=== PATIENT | female | born 2000 | race Caucasian/White ===

== ENCOUNTER 2023-06-10 10:06 | Outpatient (AMB) | payer BC, SELFPAY ==
[2023-06-10 10:08] VITALS: BP 118/66; PULSE 101; O2SAT 99; BMI 24.7
--- NOTE | 2023-06-10 10:08 | MHC.OFFVIS ---
Intake Vital Signs 06/10/23 10:08 Height 5 ft Weight 126 lb 4 oz BMI 24.7 BP 118/66 Blood Pressure Location Lt brachial Position Sitting Pulse 101 H Pulse Source Pulse Oximeter Pulse Oximetry (%) 99 Oxygen Delivery Method Room Air Intake Visit Reasons: ENP-Chronic dizziness and FH of Ms - Confirmed Intake Note: Pt presents to the office today for a new patient visit for chronin dizziness and hand and feet numbness/tingling. Pt states she started with the diziness 2 years ago as well as the numbness and tingling in her hands and feet. Pt states it happens at random times. Pt states it is usually everyday that this happens. Allergies No Known Allergies Allergy (Verified 06/10/23 10:10) Medication List - Last Reconciled 06/10/23 by MILA Gonzalez calcium carb-D3-mag ox-zinc ox 333 mg-133 unit -133 mg-5 mg (Trent Mag Zinc Plus D3) 1 tab PO DAILY HPI HPI Comments History of Present Illness Details Right-handed 23-yr-old female presents for new pt evaluation of dizziness and paresthesias. Pt reports she started having dizziness 2-3 yrs. Pt deneis any preceding infection, travel, injury. She states she had been a passenger in a car for about 10 minutes, and when she got out of the car she just felt not right. She describes the dizziness as room spinning, not right in space sensation, or when more severe and prolonged will have balance difficulties (not a pulling sensation just unsteady and feeling ehr feet are heavy). Feels like she has to open her eyes wider- and this helps the dizziness subside some. Closing her eyes makes the dizziness worse and triggers nausea. The dizziness is worse if she is looking down a lot or making a lot of turns- such as looking down on at a computer screen. 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 Other triggers include shaking her head no. Dizziness is not triggered by rolling over in bed. The dizziness lasts 30 min to 4 hrs, sometimes she goes to bed dizzy but wakes up even more dizzy in the am. Initially the dizziness was very sporadic, every few months, then every month, and in the last 1.5 yrs- daily. Dizziness a/w- paresthesias- her hands, BLE (legs to toes) tingling, and feet numbness. Speech difficulties- word swapping (but word will start w/ same letter), mispeakin She has tried dramamine- ineffective. She has not tried vestibular tx. She reports a h/o motion sickness since age 18 when she got her [place] driver's license. She may have some diplopia a/w her migraine. She has had migraine and headcahe since childhood- prior to menarche. Denies h/o colic, cyclical vomiting. Headache questionnaire: Preceding causes? None Previous work-up? Brain MRI w/o, November 2022, [place]: IMPRESSION: Normal MRI of the brain. Minimal amount of fluid in the dependent left mastoid air cells. Typical headache characteristics: Prodrome symptoms? Unsure Aura? Pt is not sure Location, quality, characteristics? Starts as a pressure in midfrontal pressure, f/b mild overlapping diplopia, and then a blast of external pressure and bilateral (can be more one side than the other), f/b blurry vision- which will last through the end of the day. Pain is usually ajmie supratrochlear region or bitemporal, rarely top of head. Left eye usually throbbing. Pain intensity? 9/10 Associated symptoms? Photophobia, some phonophobia, nausea, vomiting just once, usually dizziness comes w/ headache, brain fog, fatigue, activity intolerance. States she has always been tender headed. Focal weakness, Parethesias, Autonomic s/s? eyes watering, Postdrome? Lingers. Triggers? If has SOB, sometimes light. Any positional, valsalva, exertional, sexual activity triggers? None Menstrual triggers? None Time of day? No specific time of day Duration? Usually all day- may last into the next day Frequency? Was sporadic, but also now daily for past 1.5 yrs. How does headache impact your life? Has had to leave work d/t migraine nad dizziness. Current acute medication use/interventions: Ibuprofen or Tylenol- does not help. Previous acute medication use: None Current preventative medication use: None Previous preventative medication use: None Non-pharmacological interventions: Rest. Ice and Heat- makes her headaches worse. History of musculoskeletal disorders or injury? Chronic back pain since age 14. History of concussion/head injury? None History of mood disorder? Some anxiety. History of sleep disorder? May wake up from snoring. Endorses gasping arousals, excessive daytime sleepiness (even when sitting using her phone), fatigue. Her father has sleep apnea. Occasional restless legs feeling. History of respiratory disease? Exercise induced asthma. History of CV disease? No HTN/HLD. Reports childhood murmur. Prone to tachycardia and palpitations- cardiac monitoring has shown benign tachycardia. History of coagulopathy? None History of endocrine or metabolic disease? None History of seizure? None History of GI disorder? Some constipation- depends on diet Other? Exercises sometimes Family planning? Maybe plans to get - in the past she had low bone density- so was advised to hold her control. Family history of migraine or other headache disorder? Father, paternal aunt has migraine and BARBARA. Father recently dx'd w/ MS. [facility] Medical History (Updated 06/10/23 @ 18:43 by MILA Gonzalez) Heart murmur Pulmonic valve stenosis Mild scoliosis Chronic low back pain without sciatica Palpitations Family History Father Environmental allergies Paternal Grandmother Arthritis Hyperlipidemia Breast CA Paternal Grandmother Asthma Paternal Grandfather Sleep apnea Alcohol intake: never Patient Tobacco Use Status: Never used Tobacco Review of Systems Const Details: See scanned ROS form Physical Exam Vital Signs: Last Vital Signs Pulse 101 H 06/10/23 10:08 BP 118/66 06/10/23 10:08 Pulse Ox 99 06/10/23 10:08 Oxygen Delivery Method Room Air 06/10/23 10:08 BMI result Body Mass Index 24.7 Const Orientation/consciousness: patient oriented x3 HEENT Other: Mild bilateral supratrochlear and supraorbital notch tenderness. Mallampati grade IV. Small oral opening. Head: Yes normocephalic Resp Effort & Inspection: normal respiratory effort and able to speak in complete sentences Neuro Other: Photophobic EOM intact, however convergence elicits dizziness. Finger-Nose- mild jamie overreach. General: patient oriented x3 Cranial nerves: Yes CN's II-XII intact bilaterally Cognition (Neuro): normal cognition Gait exam (Neuro): Normal gait present Motor exam (neuro): 5/5 motor strength present throughout Deep tendon reflexes (DTR's): Right triceps reflex intensity grade: 2+, Left triceps reflex intensity grade: 2+, Rt Biceps (C5, C6): 2+, Left biceps reflex intensity grade: 2+, Right brachioradialis reflex intensity grade: 2+, Left brachioradialis reflex intensity grade: 2+, Right patellar reflex intensity grade: 2+ and Left patellar reflex intensity grade: 2+ Coordination: tandem gait normal and Romberg test negative Pupils: Normal pupillary reactivity/response: bilateral Psych Appearance: grossly normal Mental Status: mental status grossly normal Speech and movement: Normal speech and movement present Affect: normal affect Attitude: cooperative Thought process: Normal thought process present Assessment & Plan Assessment & Plan (1) Chronic migraine with aura: Comment: diplopia, blurry vision, paresthesias, speech changes likely are aura s/s Code(s): G43.E09 - Chronic migraine with aura, not intractable, without status migrainosus (2) Dizziness: Comment: Likely vestibular migraine. ? component of POTs. Code(s): R42 - Dizziness and giddiness (3) Snoring: Code(s): R06.83 - Snoring (4) Excessive daytime sleepiness: Comment: ESS 15 Code(s): G47.19 - Other hypersomnia (5) Sleep difficulties: Code(s): G47.9 - Sleep disorder, unspecified Plan Pt asked to monitor orthostatic heart rate x's 10 min standing. Pt advised to undergo HST to assess for sleep apnea. Reviewed brain MRI report- normal Future considerations- c-spine imaging, tilt-table test, vestibular tx. For overall headache management: Discussed importance of good self-care, including but not limited to maintaining a healthy diet, adequate fluid intake, adequate sleep, and engaging in regular physical activity. For headache triggers: Track headaches, especially after any treatment regimen changes. Migraine [employer] is one of many headache tracking apps. Light sensitivity tips: Patient may try blue light filtering glasses, green glasses, green light therapy.. For acute headache treatment: Discussed importance of taking acute medications at the first sign of headache, however stressed importance of avoiding acute medication overuse (especially with combined headache medications). Trial Sumatriptan 100mg tab, 1/2 - 1 tab (50-100mg) at onset of headache, may repeat in 2 hours. Max of 2 tabs (200mg) per 24 hours. May adjunct with OTC Tylenol 650mg q 4 hours, Ibuprofen 600mg q 6 hours, or Naproxen 440mg q 12 hrs prn. Reviewed potential adverse effects of triptans, including but not limited to nausea, fatigue, chest tightness/tingling (usually passes within a few minutes), medication overuse headaches. Previous acute migraine medication trials: OTC analgesics- ineffective. Acute migraine medication contraindications: None at this time. For headache prevention medication: Discussed that preventative medications should be taken routinely as prescribed for best effect, it may take several weeks for full effect to take effect. Start Amitriptyline 10-20mg qhs- this may help dizziness and migraine. Reviewed potential adverse effects of TCAs, including but not limited to fatigue, cardiac arrhythmias, mood changes. Previous migraine prevention medication trials: None Migraine prevention medication contraindications: Possibly BBs d/t exercise induced asthma. Pt to follow-up in 1.5-2 months or sooner prn. Orders: Orders RT home sleep study Today G47.19 - Other hypersomnia, G47.9 - Sleep disorder, unspecified Medications: New amitriptyline 10 mg PO BEDTIME 30 days 30 tabs 3RF sumatriptan succinate (0.5 - 1 x 100 mg) 50 - 100 mg orally at onset of headache, may repeat in 2 hrs PRN; max 2 tabs per day or 4 tabs/week (may take with Ibuprofen) 30 days 12 tabs 6RF migraine headache Coding Level of Care Code New Pt Level 4 (76935) Diagnoses Chronic migraine with aura G43.E09 Dizziness R42 Snoring R06.83 Excessive daytime sleepiness G47.19 Sleep difficulties G47.9
== END 2023-06-10 11:38 | disposition home or self-care (01) ==
PROVIDERS: PCP Internal Medicine; Visit Provider Nurse Practitioner Family
DX: G43.E09 Chronic migraine with aura, not intractable, without status migrainosus (principal); R42 Dizziness and giddiness; R06.83 Snoring; G47.19 Other hypersomnia; G47.9 Sleep disorder, unspecified
CPT/HCPCS: 99204

== ENCOUNTER → 2023-06-10 10:06 | Outpatient (BNVA) | payer BC, SELFPAY | PROVIDERS: PCP Internal Medicine; Visit Provider Nurse Practitioner Family ==

== ENCOUNTER → 2023-08-19 15:55 | Outpatient (BNVA) | payer BC, SELFPAY | PROVIDERS: Visit Provider Nurse Practitioner Family ==

== ENCOUNTER → 2023-08-27 15:03 | Outpatient (REF) | payer BC, SELFPAY | LOC: HO.SL 15:03 | PROVIDERS: Visit Provider Nurse Practitioner Family | DX: G47.9 Sleep disorder, unspecified (principal); G47.19 Other hypersomnia; R06.83 Snoring | CPT/HCPCS: 95806 ==

== ENCOUNTER → 2023-08-27 15:17 | Outpatient (BNV) | payer BC, SELFPAY | PROVIDERS: Visit Provider Internal Medicine | DX: R06.83 Snoring (principal) | CPT/HCPCS: 95806 ==

== ENCOUNTER → 2023-09-22 19:30 | Outpatient (REF) | payer BC, SELFPAY | LOC: HO.SL 19:30 | PROVIDERS: Visit Provider Nurse Practitioner Family | DX: G47.19 Other hypersomnia (principal); G47.9 Sleep disorder, unspecified; R06.83 Snoring | CPT/HCPCS: 95810 ==

== ENCOUNTER → 2023-09-22 20:30 | Outpatient (REF) | payer BC, SELFPAY | LOC: HO.SL 20:30 | PROVIDERS: Visit Provider Nurse Practitioner Family | DX: Z13.89 Encounter for screening for other disorder (principal) ==

== ENCOUNTER → 2023-09-22 21:09 | Outpatient (BNV) | payer BC, SELFPAY | PROVIDERS: Visit Provider Psychiatry & Neurology Neurology | DX: R40.0 Somnolence (principal) | CPT/HCPCS: 95810 ==

== ENCOUNTER 2024-06-28 15:35 | Outpatient (AMB) | payer BC, SELFPAY ==
[2024-06-28 15:35] VITALS: BMI 26.2
--- NOTE | 2024-06-28 15:35 | A.OFFVIS_ITS ---
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 Pt is almost 4 weeks post-. During 1st/2nd trimesters had periods of passing out up to 3 times a day- had cardiology eval including holter and achocardiogram, which was unremarkable- advised to drink more water. She was induced early at 37 weeks and 3 days d/t HTN which developed in the last month of , but did not develop preeclampsia. She had an uncomplicated vaginal delivery w/ an epidural for pain control. BP has since normalized. She is nursing her dtr. While , she only had 1-2 migraines early in the . Then did not have any migraines throughout. Since giving , she has start to have her typical migraines again. Although the migraine and dizziness to seem to be more separate from 1 another now. Last week, had a migraine that lasted 3 days. Today woke up with a migraine which has not yet gone away. Using Tylenol as needed, but it has not been helpful. She did try the Nerivio but did not find it helpful for her. Prior to becoming , she tried Naratriptan 1/2 tab once, which was tolerated ok. Baseline headache characteristics: Starts as a pressure in midfrontal pressure, f/b mild overlapping diplopia, and then a blast of external pressure and bilateral (can be more one side than the other), f/b blurry vision- which will last through the end of the day. Severe pain moves into jamie supratrochlear region or bitemporal, rarely top of head. Left eye throbbing. A/w Photophobia, some phonophobia, nausea, vomiting just once, usually dizziness comes w/ headache, brain fog, fatigue, activity intolerance, eyes watering She has been having increased episodes of dizziness, separate from the headache now- the other day had all day feeling like she would fall over. Dizziness is like the room is spinning and lightheadedness. Had to hold onto things so she would not fall. Currently drinking 2-3 30 oz water bottles per day and sometimes may have an ice tea. September in-lab PSG was negative for sleep apnea, hypoxemia, periodic limb movements of sleep. , [facility] Medical History (Updated 06/28/24 @ 16:18 by MILA Gonzalez) Heart murmur Pulmonic valve stenosis Mild scoliosis Chronic low back pain without sciatica Palpitations Family History Father Environmental allergies Paternal Grandmother Arthritis Hyperlipidemia Breast CA Paternal Grandmother Asthma Paternal Grandfather Sleep apnea Social History Alcohol intake: never Patient Tobacco Use Status: Never used Tobacco Physical Exam Vital Signs: BMI result Body Mass Index 26.2 Const General: cooperative and no acute distress Orientation/consciousness: patient oriented x3 Resp Effort & Inspection: normal respiratory effort and able to speak in complete sentences Neuro General: patient oriented x3 Cognition (Neuro): normal cognition Psych Appearance: grossly normal Mental Status: mental status grossly normal Speech and movement: Normal speech and movement present Affect: normal affect Attitude: cooperative Telehealth Telehealth Location of provider rendering services: practice address Location of patient: address on file Patient Identification confirmed using: Name, : Yes Telehealth method: video Patient verbally consented to treatment: Yes Patient verbally consented to billing insurance company: Yes Patient informed of any privacy concerns related to visit: Yes Minutes spent on Phone/Video with Pt.: 30 Assessment & Plan Assessment & Plan (1) Chronic migraine with aura: Comment: diplopia, blurry vision, paresthesias, speech changes likely are aura s/s Code(s): G43.E09 - Chronic migraine with aura, not intractable, without status migrainosus Category: Medical (2) Dizziness: Comment: Likely vestibular migraine. ? component of POTs. Code(s): R42 - Dizziness and giddiness Category: Medical (3) Sleep difficulties: Code(s): G47.9 - Sleep disorder, unspecified Category: Medical Plan ? Reviewed in-lab sleep study, negative for sleep apnea, periodic limb movements of sleep, hypoxemia. For exacerbation of dizziness: Patient advised to undergo tilt-table test, Vestibular PT eval and treat. Continue increase fluids. Slightly increased salt intake, would avoid marked increased salt intake duty patient is her daughter. Try adding 1-2 servings a day of an electrolyte replacement beverage, such as Gatorade, Powerade, or liquid IV ? For overall headache management: Continue to optimize good self-care, including but not limited to maintaining a healthy diet, adequate fluid intake, adequate sleep, and engaging in regular physical activity. For headache triggers: Track headaches and dizziness. For acute headache treatment: Discussed that triptans can be used during , sumatriptan has the most evidence for safety while . Patient previously did have side effects to 100 mg dose of sumatriptan, but would like to retry it at a lower dose as this is best studied in . Retrial sumatriptan at lower dose of 50 mg tab. May take 25-50 mg at onset of migraine, may repeat in 2 hours, max dose to 100 mg per day. Hold Naratripatn prn. Previous acute migraine medication trials: OTC analgesics- ineffective. Sumat riptan 100mg tab- worsened dizziness. Acute migraine medication contraindications: None at this time. ? For headache/dizziness prevention medication: Continue to hold Imipramine 10-20mg qhs while patient is . Reviewed potential adverse effects of TCAs, including but not limited to fatigue, cardiac arrhythmias, mood changes. Previous migraine prevention medication trials: Amitriptyline 10-20mg qhs- caused drowsiness. Migraine prevention medication contraindications: Possibly BBs d/t exercise induced asthma. ? Pt to follow-up in 3 months or sooner prn. Orders: Orders ECG Tilt Table Test Today R42 - Dizziness and giddiness, R55 - Syncope and collapse PT Evaluation and Treatment Today R42 - Dizziness and giddiness Medications: New sumatriptan succinate take 1 tab at onset of headache; if no relief may repeat 1 tab after at least 2 hrs; max = 4 tabs/24 hr orally PRN; 30 days 12 tabs 6RF migraine headache MDD 200mg Discontinued naratriptan Discontinued Reason: Doctor's Order take 1/2 - 1 tab at onset of headache; if no relief may repeat 1 tab after at least 4 hrs; max = 2 tabs/24 hrs orally PRN; 30 days 12 tabs 6RF migraine headache Coding Level of Care Code Tele Est Pt Level 4 (24865) Diagnoses Chronic migraine with aura G43.E09 Dizziness R42 Sleep difficulties G47.9
== END 2024-06-30 09:37 | disposition home or self-care (01) ==
PROVIDERS: Visit Provider Nurse Practitioner Family
DX: G43.E09 Chronic migraine with aura, not intractable, without status migrainosus (principal); R42 Dizziness and giddiness; G47.9 Sleep disorder, unspecified
CPT/HCPCS: 99214